=== PATIENT | female | born 1955 | race Caucasian/White ===

== ENCOUNTER 2017-07-27 13:34 | Emergency (ER) | payer BC, OTHER ==
[2017-07-27 13:46] VITALS: BMI 23.6
--- NOTE | 2017-07-27 14:13 | PDOC ---
History of Present Illness - General Chief Complaint: Pain Stated Complaint: SENT FOR SONOGRAM OF HER SPLEEN BY PMD Time Seen by Provider: 07/27/17 13:36 History Source: Patient Exam Limitations: No Limitations - History of Present Illness Initial Comments: This is a 62 yo female with h/o neutropenia (WBC 12k withonly 1% granulocytes without known etiology per hematology) who presents c/o left abdominal pain which is mild, non-radiating, and worsens with deep palpation. 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 Bradley) earlier today and he was able to feel an enlarged spleen on exam. She notes that he took a blood sample and instructed her to come into the ED for a sonogram. The patient herself has some difficulty explaining her symptoms and recent medical history. She notes that other than her plating foreman, she has been estranged from the allopathic medical system for years and uses naturopathic medicine. On prompting she does note recent low- grade fevers, night sweats in the past several days (which she also dealt with two months ago), and 25 lb intentional weight loss in the past 2-3 weeks ( states she was on the microbiome diet). She denies any tobacco or alcohol use, and also denies drug use but notes that she takes medicinal mushrooms. Past History - Past Medical History Allergies/Adverse Reactions: Allergies Allergy/AdvReac Type Severity Reaction Status Date / Time cephalexin monohydrate Allergy Verified 07/27/17 13:37 [From Keflex] Penicillins Allergy Verified 07/27/17 13:38 Home Medications: Ambulatory Orders NK [No Known Home Medication] 07/27/17 Other medical history: NEUTOPENIC - Psycho/Social/Smoking Cessation Hx Anxiety: No Suicidal Ideation: No Smoking History: Never smoked Have you smoked in the past 12 months: No Hx Alcohol Use: No Drug/Substance Use Hx: No Substance Use Type: None Review of Systems - Review of Systems Constitutional: Yes: Fever (low-grade), Night Sweats, Other (reported 25 lb intentional weight loss in the past 2-3 weeks). No: Chills HEENTM: No: Nose Congestion, Throat Pain Respiratory: No: Cough, Shortness of Breath Cardiac (ROS): No: Chest Pain, Palpitations ABD/GI: Yes: Other (left abdominal pain). No: Constipated, Diarrhea, Nausea, Vomiting : No: Burning, Dysuria Musculoskeletal: Yes: Other (leg swelling). No: Back Pain, Neck Pain Integumentary: Yes: Other (left lower leg skin tenderness). No: Bruising, Rash Neurological: No: Headache, Numbness, Tingling, Weakness, Dizziness Endocrine: No: Unexplained Weight Gain, Unexplained Weight Loss *Physical Exam - Vital Signs Last Vital Signs Temp Pulse Resp BP Pulse Ox 99.7 F H 114 H 16 116/72 97 07/27/17 13:35 07/27/17 13:35 07/27/17 13:35 07/27/17 13:35 07/27/17 13:35 - Physical Exam General Appearance: Yes: Nourished, Appropriately Dressed, Other (initially pleasant, strange affect, conversive, able to answer some questions but vaguely , irritable and appears a bit frustrated). No: Apparent Distress HEENT: positive: EOMI, SILVIA, Normal Voice, Pale Conjunctivae, Hearing Grossly Normal, Other (poor dentition). negative: Scleral Icterus (R), Scleral Icterus (L), Muffled/Hoarse voice, Nasal Congestion Neck: positive: Trachea midline, Supple. negative: Tender, Rigid, Lymphadenopathy (R), Lymphadenopathy (L), Thyromegaly Respiratory/Chest: positive: Lungs Clear, Normal Breath Sounds. negative: Respiratory Distress, Crackles, Rhonchi, Stridor, Wheezing Cardiovascular: positive: Regular Rhythm, Regular Rate, Edema (BLE non-pitting) . negative: Murmur Gastrointestinal/Abdominal: positive: Normal Bowel Sounds, Tender (minimal left lower quadrant tenderness to palpation, mild left upper tenderness to light palpation), Soft, Spleenomegaly (mass in the left upper quadrant from the umbilical line and midsaggital line extending up through the left costal margin on the left, nonpulsatile, dull to percussion, tender). negative: Pulsatile Mass, Guarding Musculoskeletal: positive: Normal Inspection. negative: Decreased Range of Motion, Vertebral Tenderness Extremity: positive: Normal Capillary Refill, Normal Inspection, Normal Range of Motion, Swelling (bilateral non-pitting edema from distal feet to proximal calf). negative: Tender, Cyanosis Integumentary: positive: Normal Color, Dry, Warm, Other (mild redness from left ankle to left mid-calf with stated minimal tenderness to light touch). negative : Rash, Bruising Neurologic: positive: specimen collector II-XII NML intact, Fully Oriented, Alert, Normal Mood/ Affect, Normal Response, Motor Strength 5/5 Heart Score/ECG Review #1 ECG reviewed & interpreted by me at: 15:40 Sinus tachycardia, rate of 105, with normal axis and intervals, no ST-T changes ED Treatment Course - LABORATORY CBC & Chemistry Diagram: 07/27/17 17:06 07/27/17 14:55 - RADIOLOGY Radiology Studies Ordered: Portable CXR with mild loss of visualization of the right medial diaphragmatic border but otherwise no acute cardiopulmonary processes. CT Abdomen/Pelvis WO contrast with marked splenomegaly, opacity in the right lung base. Medical Decision Making - Medical Decision Making 62 yo female with h/o neutropenia with unknown etiology who presents with left abdominal pain and LUQ mass. Exam with LUQ mass consistent with splenomegaly, vitals with HR 114 and temp 99.7 oral initially. I spoke with Dr. Bradley (hematology) who notes the LUQ mass is new, states patient has likely myeloproliferative d/o. Oral temp re-checked to be 101.5 and sepsis protocol is initiated. DDX includes mononucleosis, diverticulitis wwo perf, splenic abscess, leukemia/ lymphoma, cancer mets, polycythemia, liver disease, myelofibrosis. Ordered is CBCD, CMP, blood cx, lactate, UA with cx, coags, cardiac profile, EKG , CXR, CT abdomen/pelvis without contrast, 1 liter NS bolus. 07/27/17 16:46 INR results at 1.57. CMP without significant abnormalities, bili 1.1, LFTs otherwise normal. Troponin negative. CBCD is discussed with Lab as very low WBC, low h/h (7.6/22.2), and low PLT but the values need confirmatory testing before report. Lab would need to re-check another sample and confirm with Janiya Hasknis before reporting. 07/27/17 17:04 Spoke on phone with Dr. Bradley who confirms similar results on this morning's CBCD (except their WBC was 11k with 1% neuts). Dr. Bradley agrees with plan to repeat CBCD here, also suggests transfer to [facility] where he practices. Dr. Bradley will be in contact after 5pm today and gives his cell phone number [phone]. 07/27/17 17:25 Lab calls again with results for CBCD from newly drawn sample, and they note abnormal results. The sample will be sent to [facility] for confirmatory testing. 07/27/17 18:38 The patient does agree with plan to transfer to [facility]. Discussed case with Dr. Bradley and he is comfortable initiating transfer process before [facility] lab results return. He will contact the Oncology team with [facility] to request a hospital bed. He will coordinate with the transfer center and call back here if there are any complications. 07/27/17 18:54 [facility] calls and notes on their lab read, Pt's CBCD shows WBC 2.1 and PLT 810k ( 810,000). Patient's case is signed out to the oncoming team. *DC/Admit/Observation/Transfer Diagnosis at time of Disposition: Splenomegaly, Thrombocythemia Abdominal pain Qualifiers: Abdominal location: left lower quadrant Qualified Code(s): R10.32 - Left lower quadrant pain Anemia Qualifiers: Anemia type: unspecified type Qualified Code(s): D64.9 - Anemia, unspecified - Discharge Dispostion Disposition: TRANSFER ACUTE CARE/OTHER HOSP Condition at time of disposition: Guarded - Transfer to Acute Care Facility Receiving Facility: [facility] Accepting Physician:: Sabas Bradley
[2017-07-27] MEDS ORDERED: SODIUM CHLORIDE 1,000 ML IV STA (14:41)
--- NOTE | 2017-07-27 14:47 | PDOC ---
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 Rowley today who noticed an enlarged spleen. The pt does note intermittent fevers/sweats the past few weeks. Pt states she primarily uses naturopathic medicine and does not really beleive in medications. Pt deos endorse some nasal congestion, but declines and cough, chest pain, sob, n/v, diarrhea, dysuria/frequency. On arrival the pt is noted to have fever and si slightly tachcardic. - Physicial Exam PE: GENERAL: The patient is awake, alert, and fully oriented, Nontoxic - in no acute distress. HEAD: Normocephalic, atraumatic. EYES: extraocular movements intact, sclera anicteric, conjunctiva clear. ENT: Normal voice, Moist mucous membranes. NECK: Normal range of motion, supple LUNGS: Breath sounds equal, clear to auscultation bilaterally. No wheezes, no rhonchi, no rales. HEART: TAchycardic, Regular rate and rhythm, normal S1 and S2 without murmur, rub or gallop. ABDOMEN: Soft, +enlarged spleen w/ palpable borders, normoactive bowel sounds. No guarding, no rebound. No CVA tenderness EXTREMITIES: Normal range of motion, trace LE in ankles b/l NEUROLOGICAL: No facial assymetry, Normal speech, PSYCH: Normal mood, normal affect. SKIN: hot to touch, Dry, normal turgor, - Medical Decision Making 07/27/17 14:47 case dion tapia - Will recheck her labs to see if she is truely neutropenic sepsis order set obtained will ck ct abd to fruther evaluate her spleen sepsis orderset obtained due to fever tylenol for fever gentle hydration 07/27/17 17:[address] shows splenomegaly with a RLL infiltrate no clnical signs of pna cbc noted to be markedly abnormal - will repeat dw dr. Tapia - agrees with repeat but suspects it will be again markedly abnormal - would take pt as a transfer if hospitalization necessary as she was seen in [facility] before. would give pt levaquin for empirc coverage 07/27/17 18:51 still awaiting hematology results -they were sent to [facility] due to highly irregular results to be restested, pt agrees to transfer to [facility] for further evaluation. stable for med/surg pt declines abx until labs are back formally Heart Score/ECG Review - ECG Impressions Comment:: 07/27/17 18:57 Twelve-lead EKG was performed and reviewed by me. There is normal sinus rhythm with a rate of 105 The axis is normal. The intervals are normal. There is normal R wave progression There are no ST or T wave abnormalities. Impression: sinus tachyardia
[2017-07-27] MEDS ORDERED: ACETAMINOPHEN 325 MG TABLET (FP) PO ONE (15:02)
[2017-07-27] MEDS ORDERED: ACETAMINOPHEN 325 MG TABLET (FP) ONE (15:03)
[2017-07-27 16:01] LABS: ACTIVATED PTT 34.5 SECONDS (24.0-38.9)
[2017-07-27 16:05] LABS: INR 1.57 (0.82-1.09); PROTHROMBIN TIME (PATIENT) 17.4 SEC (10.2-13.0)
[2017-07-27 16:23] LABS: URINE APPEARANCE Clear; URINE BILIRUBIN 1+ (NEGATIVE); URINE BLOOD Negative (NEGATIVE); URINE GLUCOSE (UA) Negative (NEGATIVE); URINE KETONE Trace (NEGATIVE); URINE LEUK ESTERASE Negative (NEGATIVE); URINE NITRITE Negative (NEGATIVE); URINE UROBILINOGEN 0.2 (0.2-1.0)
[2017-07-27 16:24] LABS: URINE COLOR YELLOW; URINE PROTEIN 1+ (NEGATIVE)
[2017-07-27 16:38] LABS: ALBUMIN 3.9 g/dl (3.5-5.0); ALK PHOS 44 U/L (32-92); ANION GAP 4 (8-16); BILIRUBIN,TOTAL 1.1 mg/dl (0.2-1.0); CALCIUM 8.9 mg/dl (8.4-10.2); CO2 23 mmol/L (22-28); CREATININE 0.6 mg/dl (0.6-1.3); GLUCOSE,RANDOM 103 mg/dl (74-106); SGOT/AST 11 U/L (10-42); SGPT/ALT < 8 U/L (10-40)
[2017-07-27 16:48] LABS: CPK 10 IU/L (26-192)
[2017-07-27 16:56] LABS: TROPONIN I (DFP) < 0.03 ng/ml (0.03-0.50)
[2017-07-27] MEDS ORDERED: LEVOFLOXACIN 750 MG IVPB 150 ML IVPB ONE ×3 (17:07→19:08)
[2017-07-27 17:15] LABS: MCH 25.3 pg (25.7-33.7); MEAN CELL VOLUME 76.8 fl (80-96); MEAN PLT VOLUME 8.7 fl (7.5-11.1); RDW 18.6 % (11.6-15.6)
[2017-07-27 17:26] VITALS: PULSE 100
[2017-07-27 18:57] LABS: WHITE BLOOD COUNT 2.1 K/mm3 (4.0-10.8)
[2017-07-27 18:59] LABS: NUCLEATED RED BLOOD CELL 3 % (0-0); REACTIVE LYMPHOCYTES 3 % (0-80)
[2017-07-27 19:00] LABS: ANISOCYTOSIS 2+; HYPOCHROMIA 1+
[2017-07-27 19:02] LABS: PLATELET ESTIMATE INCREASED (NORMAL)
[2017-07-27 19:03] LABS: PLATELET COMMENT2 FEW GIANT PLTS
[2017-07-27 19:04] LABS: PLATELET COUNT > 810 K/MM3 (134-434)
[2017-07-27 19:39] VITALS: BP 120/72; TEMP 98.9
[2017-07-27 20:00] LABS: URINE RBC 0-2 /hpf (0-3); URINE WBC 0-1 (3-5)
[2017-07-27 20:01] LABS: URINE BACTERIA MODERATE /hpf (NEGATIVE)
--- NOTE | 2017-07-27 20:16 | PDOC ---
*Physical Exam - Vital Signs Last Vital Signs Temp Pulse Resp BP Pulse Ox 98.9 F 100 H 16 120/72 100 07/27/17 19:38 07/27/17 19:38 07/27/17 19:38 07/27/17 19:38 07/27/17 19:38 ED Treatment Course - LABORATORY CBC & Chemistry Diagram: 07/27/17 17:06 07/27/17 14:55 - ADDITIONAL ORDERS Additional order review: Laboratory Results 07/27/17 07/27/17 07/27/17 15:47 15:00 15:00 INR PTT (Actin FS) Sodium Potassium Chloride Carbon Dioxide Anion Gap BUN Creatinine Creat Clearance w eGFR Random Glucose Lactic Acid 1.4 Calcium Total Bilirubin AST ALT Alkaline Phosphatase Creatine Kinase 10 L Troponin I < 0.03 L Total Protein Albumin Urine Color Yellow Urine Appearance Clear Urine pH 5.0 Ur Specific Busby 1.020 Urine Protein 1+ H Urine Glucose (UA) Negative Urine Ketones Trace Urine Blood Negative Urine Nitrite Negative Urine Bilirubin 1+ H Urine Urobilinogen 0.2 Ur Leukocyte Esterase Negative Urine RBC 0-2 Urine WBC 0-1 Amorphous Urates Many Urine Bacteria Moderate 07/27/17 07/27/17 15:00 14:55 INR 1.57 H PTT (Actin FS) 34.5 Sodium 132 L Potassium 4.6 Chloride 105 Carbon Dioxide 23 Anion Gap 4 L BUN 9 Creatinine 0.6 Creat Clearance w eGFR > 60 Random Glucose 103 Lactic Acid Calcium 8.9 Total Bilirubin 1.1 H AST 11 ALT < 8 L Alkaline Phosphatase 44 Creatine Kinase Troponin I Total Protein 7.0 Albumin 3.9 Urine Color Urine Appearance Urine pH Ur Specific Busby Urine Protein Urine Glucose (UA) Urine Ketones Urine Blood Urine Nitrite Urine Bilirubin Urine Urobilinogen Ur Leukocyte Esterase Urine RBC Urine WBC Amorphous Urates Urine Bacteria 07/27/17 07/27/17 17:06 15:00 RBC 2.82 L Cancelled MCV 76.8 L Cancelled MCHC 33.0 Cancelled RDW 18.6 H Cancelled MPV 8.7 Cancelled Neutrophils % Y Cancelled Lymphocytes % Y Cancelled Monocytes % Cancelled Eosinophils % Cancelled Basophils % Cancelled - Medications Given in the ED: ED Medications Discontinued Medications Generic Name Dose Route Start Last Admin Trade Name Freq PRN Reason Stop Dose Admin Acetaminophen 975 mg 07/27/17 15:02 07/27/17 15:10 Tylenol - PO 08/29/17 15:03 975 mg ONCE ONE Administration Sodium Chloride 1,000 mls @ 1,000 mls/hr 07/27/17 14:41 07/27/17 15:15 Normal Saline - IV 07/27/17 15:40 1,000 mls/hr ASDIR STA Administration Levofloxacin 150 mls @ 100 mls/hr 07/27/17 17:07 07/27/17 18:08 Levaquin 750 Mg Premixed Ivpb - IVPB 07/27/17 18:36 Not Given ONCE ONE Progress Note - Progress Note Progress Note: Patient was seen evaluated and treated prior to the start of my shift in the emergency department. Patient was scheduled for transfer to [facility]. Patient decided that she did not want to be transferred at this time and requested to sign out AGAINST MEDICAL ADVICE. I discussed with patient the advantages of staying in the emergency room and being transferred to [facility] however patient's was adamant that she did not want to stay to be transferred. Patient understood the risks of leaving AGAINST MEDICAL ADVICE in closing the risk of permanent disability and . Patient was informed that at any time should she change her mind or change her decision that she should go to [facility] or call 911 if it was an emergency and she would be taken to the nearest emergency room. Patient was also told that she should follow-up with her primary care doctor in the morning regarding her medical condition. Patient's was present for the discussion patient and her both understood risks of her signing out AGAINST MEDICAL ADVICE. *DC/Admit/Observation/Transfer Diagnosis at time of Disposition: Splenomegaly, Thrombocytosis Abdominal pain Qualifiers: Abdominal location: left lower quadrant Qualified Code(s): R10.32 - Left lower quadrant pain Anemia Qualifiers: Anemia type: unspecified type Qualified Code(s): D64.9 - Anemia, unspecified - Discharge Dispostion Disposition: AGAINST MEDICAL ADVICE Condition at time of disposition: Guarded - Patient Instructions Additional Instructions: Your signing out of the emergency room AGAINST MEDICAL ADVICE. It is been advised by Dr. teran that you need to be transferred to another facility for evaluation treatment and the management of the a medical condition that is beyond the scope of this facility to manage and treat. You have chosen to not weight and be transferred to the other facility and are signing out AGAINST MEDICAL ADVICE by signing out of medical AGAINST MEDICAL ADVICE you except the responsibility for any medical condition or adverse outcome as a result of your signing out AGAINST MEDICAL ADVICE. You understand that as a result of signing out AGAINST MEDICAL ADVICE this decision could result in permanent disability or even . If at any point you change your mind you should go to [facility] where you would have been transferred for admission. Or if it is an emergency call 911 and you will be taken to the nearest emergency department.
--- NOTE | 2017-07-28 08:22 | EKG ---
Test Reason : Blood Pressure : / mmHG Vent. Rate : 105 BPM Atrial Rate : 105 BPM P-R Int : 142 ms QRS Dur : 082 ms QT Int : 346 ms P-R-T Axes : 068 014 032 degrees QTc Int : 457 ms SINUS TACHYCARDIA OTHERWISE NORMAL ECG NO PREVIOUS ECGS AVAILABLE Confirmed by MAGDALENE LANGFORD MD ([id number]) on 07/28/2017 8:21:45 AM Referred By: DR MARTIN Confirmed By:MAGDALENE LANGFORD MD
--- NOTE | 2017-07-31 09:09 | PDOC ---
*Physical Exam - Vital Signs Last Vital Signs Temp Pulse Resp BP Pulse Ox 98.9 F 100 H 16 120/72 100 07/27/17 19:38 07/27/17 19:38 07/27/17 19:38 07/27/17 19:38 07/27/17 19:38 - Physical Exam Comments:: 07/31/17 09:07 Called this AM by microbiology lab that the patient has gram +cocci in clusters in 1 bottle of blood cultures drawn on 07/27. The patient AMA from the ED that visit. I called the patient at home and spoke with her who stated that she was admitted at [facility]. A call was placed to [facility] and I spoke with her nurse Meghan. Meghan was updated on the culture results and said she would pass the results on to her medical team at [facility]. ED Treatment Course - LABORATORY CBC & Chemistry Diagram: 07/27/17 17:06 07/27/17 14:55 - ADDITIONAL ORDERS Additional order review: 07/27/17 15:17 Blood Culture - Preliminary Blood - Peripheral Venous Gram Positive Cocci 07/27/17 15:00 Blood Culture - Preliminary Blood - Peripheral Venous NO GROWTH OBTAINED AFTER 72 HOURS, INCUBATION TO CONTINUE FOR 2 DAYS. 07/27/17 15:47 Urine Culture - Final Urine - Urine Clean Catch NO GROWTH OBTAINED 07/27/17 07/27/17 17:06 15:00 RBC 2.82 L Cancelled MCV 76.8 L Cancelled MCHC 33.0 Cancelled RDW 18.6 H Cancelled MPV 8.7 Cancelled Neutrophils % Y Cancelled Lymphocytes % Y Cancelled Monocytes % Cancelled Eosinophils % Cancelled Basophils % Cancelled - Medications Given in the ED: ED Medications Discontinued Medications Generic Name Dose Route Start Last Admin Trade Name Freq PRN Reason Stop Dose Admin Acetaminophen 975 mg 07/27/17 15:02 07/27/17 15:10 Tylenol - PO 07/27/17 15:03 975 mg ONCE ONE Administration Sodium Chloride 1,000 mls @ 1,000 mls/hr 07/27/17 14:41 07/27/17 15:15 Normal Saline - IV 07/27/17 15:40 1,000 mls/hr ASDIR STA Administration Levofloxacin 150 mls @ 100 mls/hr 07/27/17 17:07 07/27/17 18:08 Levaquin 750 Mg Premixed Ivpb - IVPB 07/27/17 18:36 Not Given ONCE ONE Levofloxacin 150 mls @ 100 mls/hr 07/27/17 19:01 07/27/17 19:26 Levaquin 750 Mg Premixed Ivpb - IVPB 07/27/17 20:30 Not Given ONCE ONE *DC/Admit/Observation/Transfer Diagnosis at time of Disposition: Splenomegaly, Thrombocytosis Abdominal pain Qualifiers: Abdominal location: left lower quadrant Qualified Code(s): R10.32 - Left lower quadrant pain Anemia Qualifiers: Anemia type: unspecified type Qualified Code(s): D64.9 - Anemia, unspecified - Discharge Dispostion Disposition: AGAINST MEDICAL ADVICE Condition at time of disposition: Guarded - Patient Instructions Additional Instructions: Your signing out of the emergency room AGAINST MEDICAL ADVICE. It is been advised by Dr. teran that you need to be transferred to another facility for evaluation treatment and the management of the a medical condition that is beyond the scope of this facility to manage and treat. You have chosen to not weight and be transferred to the other facility and are signing out AGAINST MEDICAL ADVICE by signing out of medical AGAINST MEDICAL ADVICE you except the responsibility for any medical condition or adverse outcome as a result of your signing out AGAINST MEDICAL ADVICE. You understand that as a result of signing out AGAINST MEDICAL ADVICE this decision could result in permanent disability or even . If at any point you change your mind you should go to [facility] where you would have been transferred for admission. Or if it is an emergency call 911 and you will be taken to the nearest emergency department.
== END 2017-07-27 20:21 | disposition left against medical advice (07) ==
LOC: FER 13:34
PROC: 3E0337Z Introduction of Electrolytic and Water Balance Substance into Peripheral Vein, Percutaneous Approach (ICD-10-PCS; principal; 2017-07-27)
DX: R16.1 Splenomegaly, not elsewhere classified (principal); D69.6 Thrombocytopenia, unspecified
CPT/HCPCS: 36415; 71010-TC; 74176-TC; 80053; 81003; 81015; 83605; 84484; 85025; 85610; 85730; 86308; 87040; 87086; 93005; 99283-25